=== PATIENT | female | born 1995 | race Caucasian/White ===

== ENCOUNTER 2016-03-15 18:24 | Emergency (ER) | payer SELFPAY ==
[~2016-03-15] VITALS: Ht 165.1 cm; Wt 122.5 kg
[~2016-03-15 18:24] MED LIST: ALBUTEROL0.09 MG/A2 INH; BACTRIM DS 8001 TA1 PO; BIRTH CONTROL; BIRTH CONTROL1 EAC1 PO; CIPROFLOXACIN500 MG PO; HYDROCODONE BIT1 T11 PO; MOTRIN800 MG PO; NORFLEX100 MG PO; PERCOCET 325 MG1 TA2 PO; PREDNICOT20 MG PO; PROVENTIL0.09 MG/A1 INH; PYRIDIUM200 MG PO; ROBITUSSIN AC 110 ML PO; ZITHROMAX Z PA250 MG PO; ZITHROMAX250 MG PO
[2016-03-15 18:28] VITALS: BP 144/89
[2016-03-15 18:55] LABS: BILIRUBIN 1+ (NEGATIVE); BLOOD NEGATIVE (NEGATIVE); CLARITY SL CLOUDY (CLEAR); COLOR YELLOW (YELLOW); GLUCOSE NEGATIVE (NEGATIVE); KETONE 1+ (NEGATIVE); LEUKO ESTERASE TRACE (NEGATIVE); NITRITE NEGATIVE (NEGATIVE); PROTEIN TRACE (NEGATIVE)
[2016-03-15 19:03] LABS: MUCOUS 1+; URINE REFLEX COMMENT YES (NO)
[2016-03-15 20:02] LABS: BASO % 0.4 % (0.0-1.0); EOS # 0.4 10*3/uL (0.0-0.4); EOS % 4.4 % (1.0-4.0); HEMATOCRIT 46.8 % (37.0-47.0); HEMOGLOBIN 15.8 g/dl (12.0-16.0); LYMPH # 3.7 10*3/uL (1.3-4.4); LYMPH % 38.6 % (27.0-41.0); MEAN CELL VOLUME 93.4 fl (81.0-99.0); MEAN CORPUSCULAR HGB 31.5 pg (27.0-31.0); MEAN CORPUSCULAR HGB CONC 33.8 g/dl (33.0-37.0); MEAN PLATELET VOLUME 10.7 fl (9.6-12.3); MONO # 0.8 10*3/uL (0.1-1.0); MONO % 8.8 % (3.0-9.0); NEUT # 4.5 10*3/uL (2.3-7.9); NEUT % 47.6 % (47.0-73.0); PLATELET COUNT AUTOMATED 245 10*3/uL (130-400); RED BLOOD COUNT 5.01 10*6/uL (4.10-5.10); RED CELL DISTRI WIDTH 12.4 % (0-14.5); WHITE BLOOD COUNT 9.5 10*3/uL (4.8-10.8)
[2016-03-15 21:01] LABS: ALBUMIN 3.4 gm/dl (3.1-4.5); ALKALINE PHOSPHATASE 72 U/L (45-117); BILIRUBIN, TOTAL 0.3 mg/dl (0.2-1.0); BUN 12 mg/dl (7-24); CARBON DIOXIDE 27 mmol/L (21-32); CHLORIDE 109 mmol/L (98-107); EST GLOM FILT AFRICAN AMERICAN > 60 ml/min; GLUCOSE 77 mg/dL (65-99); SGOT/AST 12 IU/L (3-35); SGPT/ALT 23 U/L (12-78); SODIUM 144 mmol/L (136-145); TOTAL PROTEIN 6.4 gm/dL (6.4-8.2)
[2016-03-15] MEDS ORDERED: CARAFATE1 G1 PO (23:02)
[2016-03-15] MEDS ORDERED: BACTRIM DS 8001 TA1 PO (23:02)
== END 2016-03-15 23:13 | disposition home or self-care (01) ==
LOC: ED 18:24
PROVIDERS: Physician Assistant
DX: R10.13 Epigastric pain (principal); F17.200 Nicotine dependence, unspecified, uncomplicated; K21.9 Gastro-esophageal reflux disease without esophagitis

== ENCOUNTER 2016-06-22 12:15 | Emergency (ER) | payer OTHER ==
[~2016-06-22] VITALS: Ht 167.6 cm; Wt 122.5 kg
[~2016-06-22 12:15] MED LIST changes: +CARAFATE1 G1 PO
[2016-06-22 12:35] VITALS: BP 131/76
[2016-06-22] MEDS ORDERED: VENTOLIN H0.09 MG/AC INH (14:52)
[2016-06-22] MEDS ORDERED: AVPAK AZITHROM250 M1 PO (14:52)
== END 2016-06-22 15:12 | disposition home or self-care (01) ==
LOC: ED 12:15
DX: J20.9 Acute bronchitis, unspecified (principal); F17.200 Nicotine dependence, unspecified, uncomplicated

== ENCOUNTER 2017-02-19 13:31 | Emergency (ER) | payer OTHER ==
[~2017-02-19] VITALS: Ht 165.1 cm; Wt 122.5 kg
[~2017-02-19 13:31] MED LIST changes: +AVPAK AZITHROM250 M1 PO; +VENTOLIN H0.09 MG/AC INH
[2017-02-19 14:21] LABS: BASO % 0.5 % (0.0-1.0); EOS # 0.6 10*3/uL (0.0-0.4); EOS % 7.4 % (1.0-4.0); HEMATOCRIT 45.3 % (37.0-47.0); LYMPH # 3.4 10*3/uL (1.3-4.4); LYMPH % 41.3 % (27.0-41.0); MEAN CELL VOLUME 89.7 fl (81.0-99.0); MEAN CORPUSCULAR HGB 31.7 pg (27.0-31.0); MEAN CORPUSCULAR HGB CONC 35.3 g/dl (33.0-37.0); MONO # 0.7 10*3/uL (0.1-1.0); MONO % 8.7 % (3.0-9.0); NEUT # 3.4 10*3/uL (2.3-7.9); NEUT % 41.9 % (47.0-73.0); PLATELET COUNT AUTOMATED 200 10*3/uL (130-400); RED BLOOD COUNT 5.05 10*6/uL (4.10-5.10); RED CELL DISTRI WIDTH 12.3 % (0-14.5); WHITE BLOOD COUNT 8.2 10*3/uL (4.8-10.8)
[2017-02-19 14:29] LABS: BILIRUBIN NEGATIVE (NEGATIVE); BLOOD NEGATIVE (NEGATIVE); CLARITY SL CLOUDY (CLEAR); COLOR YELLOW (YELLOW); GLUCOSE NEGATIVE (NEGATIVE); KETONE NEGATIVE (NEGATIVE); LEUKO ESTERASE NEGATIVE (NEGATIVE); NITRITE NEGATIVE (NEGATIVE); UROBILINOGEN 0.2 E.U./dl (0.2-1.0)
[2017-02-19 14:34] LABS: ALBUMIN 3.9 gm/dl (3.1-4.5); BUN 11 mg/dl (7-24); CHLORIDE 106 mmol/L (98-107); POTASSIUM 4.3 mmol/L (3.5-5.1); SGOT/AST 17 IU/L (3-35); SGPT/ALT 27 U/L (12-78); SODIUM 140 mmol/L (136-145); TOTAL PROTEIN 7.5 gm/dL (6.4-8.2)
[2017-02-19 14:35] LABS: ALKALINE PHOSPHATASE 102 U/L (45-117)
[2017-02-19 14:48] LABS: BACTERIA TRACE; EPITHELIAL CELLS 55-60; MUCOUS TRACE; RBC 0-2 rbc/hpf (0-2)
[2017-02-19] MEDS ORDERED: PROTONIX40 MG PO (15:19)
[2017-02-19] MEDS ORDERED: ZANTAC 150150 MG PO (15:19)
[2017-02-19] MEDS ORDERED: CARAFATE1 G1 PO (15:19)
== END 2017-02-19 15:47 | disposition home or self-care (01) ==
LOC: ED 13:31
PROVIDERS: Emergency Medicine
DX: K21.9 Gastro-esophageal reflux disease without esophagitis (principal); F17.200 Nicotine dependence, unspecified, uncomplicated; Z79.899 Other long term (current) drug therapy

== ENCOUNTER 2017-06-02 05:43 | Emergency (ER) | payer OTHER ==
[~2017-06-02] VITALS: Ht 165.1 cm; Wt 122.5 kg
[~2017-06-02 05:43] MED LIST changes: +PROTONIX40 MG PO; +ZANTAC 150150 MG PO
[2017-06-02 06:08] LABS: BILIRUBIN 1+ (NEGATIVE); BLOOD NEGATIVE (NEGATIVE); CLARITY SL CLOUDY (CLEAR); COLOR YELLOW (YELLOW); GLUCOSE NEGATIVE (NEGATIVE); KETONE TRACE (NEGATIVE); LEUKO ESTERASE NEGATIVE (NEGATIVE); NITRITE NEGATIVE (NEGATIVE); PH 5.5 (5.0-9.0); SPECIFIC GRAVITY >= 1.030 (1.005-1.030)
[2017-06-02 06:20] LABS: BACTERIA 3+; EPITHELIAL CELLS 35-40
[2017-06-02 06:26] LABS: BASO % 0.2 % (0.0-1.0); EOS # 0.7 10*3/uL (0.0-0.4); EOS % 7.6 % (1.0-4.0); HEMATOCRIT 44.8 % (37.0-47.0); HEMOGLOBIN 15.7 g/dl (12.0-16.0); LYMPH # 2.7 10*3/uL (1.3-4.4); LYMPH % 30.7 % (27.0-41.0); MEAN CELL VOLUME 90.9 fl (81.0-99.0); MEAN CORPUSCULAR HGB 31.8 pg (27.0-31.0); MEAN PLATELET VOLUME 10.1 fl (9.6-12.3); MONO # 0.6 10*3/uL (0.1-1.0); MONO % 7.3 % (3.0-9.0); NEUT # 4.7 10*3/uL (2.3-7.9); NEUT % 54.1 % (47.0-73.0); PLATELET COUNT AUTOMATED 185 10*3/uL (130-400); RED BLOOD COUNT 4.93 10*6/uL (4.10-5.10); RED CELL DISTRI WIDTH 12.5 % (0-14.5); WHITE BLOOD COUNT 8.7 10*3/uL (4.8-10.8)
[2017-06-02 06:41] LABS: ALBUMIN 3.8 gm/dl (3.1-4.5); ALKALINE PHOSPHATASE 99 U/L (45-117); BUN 13 mg/dl (7-24); CHLORIDE 107 mmol/L (98-107); CREATININE 0.83 mg/dL (0.55-1.02); LIPASE 109 U/L (73-393); POTASSIUM 3.6 mmol/L (3.5-5.1); SGOT/AST 21 IU/L (3-35); SGPT/ALT 33 U/L (12-78); SODIUM 141 mmol/L (136-145)
[2017-06-02] MEDS ORDERED: PRILOSEC20 M1 PO (10:28)
[2017-06-02 11:00] VITALS: BP 122/64
[2017-06-02] MEDS ORDERED: SPRINTEC 35 MCG1 TA1 PO (19:53)
[2017-06-03] MEDS ORDERED: PROTONIX40 MG PO (11:05)
[2017-06-03] MEDS ORDERED: CARAFATE1 G1 PO (11:05)
[2017-06-03] MEDS ORDERED: Zofran4 MG SL (11:05)
== END 2017-06-02 10:59 | disposition home or self-care (01) ==
LOC: ED 05:43
PROVIDERS: Emergency Medicine Emergency Medical Services
DX: R10.13 Epigastric pain (principal); K21.9 Gastro-esophageal reflux disease without esophagitis; Z79.899 Other long term (current) drug therapy

== ENCOUNTER 2017-06-02 18:15 | Inpatient (IN) | payer OTHER ==
[~2017-06-02] VITALS: Ht 165.1 cm; Wt 132.1 kg
--- NOTE | ~2017-06-02 | O ---
[place], [place] OPERATIVE NOTE NAME: KELLIE CHUA UNIT #: [id number] ROOM: 427 DOCTOR: MAME VENTURA MD BIRTHDATE: [birth year] DOS: 06/03/2017 GASTROENDOSCOPIC REPORT INDICATIONS: A 21-year-old patient, morbidly obese with fatty metamorphosis of liver with relentless nausea and vomiting. test negative. Sonographic study of the gallbladder negative. No stone. CT scan of the abdomen and pelvis negative. The patient consumes 3 to 4 cans of carbonated sodas per day and a nicotine consumer. PROCEDURE: Today's procedure part of investigation is panendoscopy plus biopsy. PREMEDICATION: Versed and Diprivan. SCOPE: Olympus forward-viewing gastroscope Q10 video. REPORT: After putting the patient in left lateral position and application of lubricant to the scope, the scope was introduced. Thereafter, under direct visualization, advanced through the length of esophagus without difficulty. Gastric pouch was entered. Proximal hemorrhagic gastritis was noticed. Biopsies obtained. Photograph was obtained. Bile reflux was noticed. Duodenal bulb, second and third part within normal limits. The patient was extubated, tolerated the procedure well. IMPRESSION: Proximal hemorrhagic gastritis, status post biopsy, bile reflux gastritis. PLAN AND DISCUSSION: We are going to address the gastritis with Protonix 40 mg IV daily and sucralfate 2 grams slurry q.i.d. We are going to give her a dose of GI cocktail today and she would benefit from a HIDA scan even as outpatient to assure that there is no instigating etiology to have nausea and vomiting, i.e., gallbladder dysfunction, and clinical reassessment. At the present time, hemorrhagic gastritis is the etiology of the nausea and vomiting. [place], [place] OPERATIVE NOTE NAME: KELLIE CHUA [place] UNIT #: [id number] ROOM: 427 DOCTOR: MAME VENTURA MD BIRTHDATE: [birth year] MAME VENTURA MD CM:OPRECORD:OPERATIVE NOTE 6 MAME VENTURA MD 06/03/17 0835 interface
--- NOTE | ~2017-06-02 | CON ---
[place], [place] REPORT OF CONSULTATION [facility]: [facility]IE [id number] UNIT #: [id number] ROOM: 427 DOCTOR: MAME VENTURA MD BIRTHDATE: [birth year] DOS: 06/03/2017 HISTORY OF PRESENT ILLNESS: A 21-year-old patient who has presented with relentless nausea and vomiting. She is not . She is drinking 3 carbonated sodas, caffeinated beverages. She is a smoker. At the time of admission, white blood cell was 8, H and H of 15 and 44, INR 1.0. Abdominal x-rays, no acute abdominal pathology identified. Comprehensive metabolic panel, electrolyte, GFR all normal. Lipase is normal. Lactic acid is 0.9. CT scan of the abdomen and pelvis, no definitive intraabdominal pathology was seen. Ultrasound of the gallbladder, diffuse hepatic steatosis, otherwise unremarkable ultrasound. No cholelithiasis. Gallbladder wall thickening or biliary distention is not noticed. White blood cell increased to 11. Comprehensive metabolic panel remained normal. Liver function tests remained normal. PAST MEDICAL HISTORY: Reflux, morbid obesity, nicotine dependency. SOCIAL HISTORY: Smoker, nonalcohol consumer. FAMILY HISTORY: Noncontributory. ALLERGIES: No known medications. MEDICATIONS: Anti- pills. REVIEW OF SYSTEMS: HEENT: Denies double vision or blurred vision. RESPIRATORY: Denies acute shortness of breath or history of asthma. CARDIOVASCULAR: Denies chest pain. DIGESTIVE SYSTEM: Recurrent nausea and vomiting. PHYSICAL EXAMINATION: GENERAL: Morbidly obese patient. VITAL SIGNS: Stable. HEENT: Head is normocephalic, nontraumatic. Mouth and buccal mucosa benign. NECK: Supple. No thyromegaly. No cervical lymphadenopathy. CHEST: Symmetric anatomy, equal expansion. No wheeze, no rhonchi. HEART: Normal sinus rhythm. No gallop, no murmur. ABDOMEN: Obese, large, soft. Intra-abdominal organs cannot be palpated due to obesity. EXTREMITIES: No cyanosis. No pedal edema. NEUROLOGIC: Alert and oriented to time, place, and person. IMPRESSION: Relentless nausea and vomiting, morbid obesity, nicotine dependency. LABORATORY AND IMAGING DATA: Labs reviewed, records reviewed. All the studies are nearly normal. PLAN AND DISCUSSION: We are going to do endoscopy and further decision regarding HIDA scan or otherwise. Fatty metamorphosis of the liver is noticed [place], [place] REPORT OF CONSULTATION NAME: KELLIE CHUA UNIT #: [id number] ROOM: 427 DOCTOR: AUDREY BAY,MAME BIRTHDATE: [birth year] that corresponds with her morbid obesity. MAME VENTURA MD CM:CONSTR:REPORT OF CONSULTATION 1 06/03/17 0917 interface
[~2017-06-02 18:15] MED LIST changes: +PRILOSEC20 M1 PO
[2017-06-02 18:19] VITALS: BP 150/84
[2017-06-02 19:35] VITALS: BP 150/84; BP 99/58
[2017-06-02] MEDS ORDERED: SPRINTEC 35 MCG1 TA1 PO (19:53)
[2017-06-02 20:23] LABS: BASO % 0.4 % (0.0-1.0); EOS # 0.6 10*3/uL (0.0-0.4); EOS % 5.6 % (1.0-4.0); HEMATOCRIT 42.8 % (37.0-47.0); HEMOGLOBIN 14.7 g/dl (12.0-16.0); LYMPH # 2.9 10*3/uL (1.3-4.4); LYMPH % 25.6 % (27.0-41.0); MEAN CELL VOLUME 91.8 fl (81.0-99.0); MEAN CORPUSCULAR HGB 31.5 pg (27.0-31.0); MEAN CORPUSCULAR HGB CONC 34.3 g/dl (33.0-37.0); MONO # 0.8 10*3/uL (0.1-1.0); MONO % 7.5 % (3.0-9.0); NEUT # 6.8 10*3/uL (2.3-7.9); NEUT % 60.7 % (47.0-73.0); PLATELET COUNT AUTOMATED 184 10*3/uL (130-400); RED BLOOD COUNT 4.66 10*6/uL (4.10-5.10); RED CELL DISTRI WIDTH 12.6 % (0-14.5); WHITE BLOOD COUNT 11.2 10*3/uL (4.8-10.8)
[2017-06-02 20:38] LABS: ALBUMIN 3.8 gm/dl (3.1-4.5); ALKALINE PHOSPHATASE 97 U/L (45-117); BUN 10 mg/dl (7-24); CHLORIDE 104 mmol/L (98-107); CREATININE 0.86 mg/dL (0.55-1.02); PHOSPHOROUS 2.6 mg/dL (2.5-4.9); POTASSIUM 3.8 mmol/L (3.5-5.1); SGOT/AST 16 IU/L (3-35); SGPT/ALT 29 U/L (12-78); SODIUM 139 mmol/L (136-145); TOTAL PROTEIN 6.8 gm/dL (6.4-8.2)
[2017-06-03 00:52] VITALS: BP 96/50
[2017-06-03 06:25] LABS: BASO % 0.3 % (0.0-1.0); EOS # 0.8 10*3/uL (0.0-0.4); EOS % 8.2 % (1.0-4.0); HEMATOCRIT 43.2 % (37.0-47.0); HEMOGLOBIN 14.6 g/dl (12.0-16.0); LYMPH # 3.6 10*3/uL (1.3-4.4); LYMPH % 38.2 % (27.0-41.0); MEAN CELL VOLUME 92.9 fl (81.0-99.0); MEAN CORPUSCULAR HGB 31.4 pg (27.0-31.0); MEAN CORPUSCULAR HGB CONC 33.8 g/dl (33.0-37.0); MEAN PLATELET VOLUME 10.3 fl (9.6-12.3); MONO # 0.8 10*3/uL (0.1-1.0); MONO % 8.7 % (3.0-9.0); NEUT # 4.1 10*3/uL (2.3-7.9); NEUT % 44.3 % (47.0-73.0); PLATELET COUNT AUTOMATED 180 10*3/uL (130-400); RED BLOOD COUNT 4.65 10*6/uL (4.10-5.10); RED CELL DISTRI WIDTH 12.6 % (0-14.5); WHITE BLOOD COUNT 9.4 10*3/uL (4.8-10.8)
[2017-06-03 06:46] LABS: ALBUMIN 3.7 gm/dl (3.1-4.5); ALKALINE PHOSPHATASE 97 U/L (45-117); BUN 9 mg/dl (7-24); CHLORIDE 106 mmol/L (98-107); CHOLESTEROL 138 mg/dL (<200); CREATININE 0.87 mg/dL (0.55-1.02); HDL CHOLESTEROL 39 mg/dl (40-60); LDL CHOLESTEROL 84 mg/dL (9-159); PHOSPHOROUS 2.9 mg/dL (2.5-4.9); POTASSIUM 3.8 mmol/L (3.5-5.1); SGOT/AST 20 IU/L (3-35); SGPT/ALT 28 U/L (12-78); SODIUM 141 mmol/L (136-145); TOTAL PROTEIN 6.7 gm/dL (6.4-8.2); TRIGLYCERIDES 76 mg/dl (<150); VLDL CHOLESTEROL 15 mg/dL (6-40)
[2017-06-03 07:00] VITALS: BP 116/71
[2017-06-03 08:00] VITALS: BP 93/55
[2017-06-03 08:32] VITALS: BP 94/47
[2017-06-03 08:39] VITALS: BP 99/54
[2017-06-03 08:50] VITALS: BP 107/61
[2017-06-03] MEDS ORDERED: Zofran4 MG SL (11:05)
[2017-06-03] MEDS ORDERED: CARAFATE1 G1 PO (11:05)
[2017-06-03] MEDS ORDERED: PROTONIX40 MG PO (11:05)
== END 2017-06-03 14:03 | disposition home or self-care (01) | DRG 378 ==
LOC: ED 18:15 → EDHOLD 18:41 → 4E 18:41 → EDHOLD 18:46 → 4E 06-03 14:03
PROVIDERS: Internal Medicine; Internal Medicine Nephrology
PROC: 0DB68ZX Excision of Stomach, Via Natural or Artificial Opening Endoscopic, Diagnostic (ICD-10-PCS; principal; 2017-06-03)
DX: K29.71 Gastritis, unspecified, with bleeding (principal); Z68.42 Body mass index [BMI] 45.0-49.9, adult; D72.1 Eosinophilia; K76.0 Fatty (change of) liver, not elsewhere classified; E66.01 Morbid (severe) obesity due to excess calories; F17.210 Nicotine dependence, cigarettes, uncomplicated; R79.82 Elevated C-reactive protein (CRP); K21.9 Gastro-esophageal reflux disease without esophagitis; Z79.2 Long term (current) use of antibiotics; Z79.899 Other long term (current) drug therapy; Z87.440 Personal history of urinary (tract) infections; Z83.6 Family history of other diseases of the respiratory system; Z83.3 Family history of diabetes mellitus; Z82.5 Family history of asthma and other chronic lower respiratory diseases; Z78.9 Other specified health status; Z71.6 Tobacco abuse counseling

== ENCOUNTER → 2017-06-16 | Outpatient (CLI) | payer OTHER ==
[~2017-06-16] MED LIST changes: +SPRINTEC 35 MCG1 TA1 PO; +Zofran4 MG SL
== END | disposition home or self-care (01) ==
LOC: NM 06:53
DX: R11.2 Nausea with vomiting, unspecified (principal); R10.10 Upper abdominal pain, unspecified

== ENCOUNTER 2017-11-20 12:11 | Emergency (ER) | payer OTHER ==
[~2017-11-20] VITALS: Ht 167.6 cm; Wt 131.5 kg
[2017-11-20 12:15] VITALS: BP 119/62
[2017-11-20 12:35] LABS: BASO % 0.3 % (0.0-1.0); EOS # 0.3 10*3/uL (0.0-0.4); EOS % 3.6 % (1.0-4.0); HEMATOCRIT 43.4 % (37.0-47.0); HEMOGLOBIN 14.9 g/dl (12.0-16.0); LYMPH # 3.2 10*3/uL (1.3-4.4); LYMPH % 36.1 % (27.0-41.0); MEAN CELL VOLUME 92.1 fl (81.0-99.0); MEAN CORPUSCULAR HGB 31.6 pg (27.0-31.0); MEAN CORPUSCULAR HGB CONC 34.3 g/dl (33.0-37.0); MONO # 0.6 10*3/uL (0.1-1.0); MONO % 6.5 % (3.0-9.0); NEUT # 4.8 10*3/uL (2.3-7.9); NEUT % 53.3 % (47.0-73.0); PLATELET COUNT AUTOMATED 191 10*3/uL (130-400); RED BLOOD COUNT 4.71 10*6/uL (4.10-5.10); RED CELL DISTRI WIDTH 12.9 % (0-14.5); WHITE BLOOD COUNT 8.9 10*3/uL (4.8-10.8)
[2017-11-20 12:51] LABS: ALBUMIN 3.6 gm/dl (3.1-4.5); ALKALINE PHOSPHATASE 95 U/L (45-117); BUN 13 mg/dl (7-24); CHLORIDE 111 mmol/L (98-107); CREATININE 0.76 mg/dL (0.55-1.02); LIPASE 93 U/L (73-393); POTASSIUM 3.8 mmol/L (3.5-5.1); SGOT/AST 10 IU/L (3-35); SGPT/ALT 25 U/L (12-78); SODIUM 144 mmol/L (136-145); TOTAL PROTEIN 6.8 gm/dL (6.4-8.2)
[2017-11-20 12:53] LABS: B-hCG (QUALITATIVE) NEGATIVE (NEGATIVE)
[2017-11-20 13:01] LABS: BILIRUBIN NEGATIVE (NEGATIVE); BLOOD NEGATIVE (NEGATIVE); CLARITY CLEAR (CLEAR); COLOR YELLOW (YELLOW); GLUCOSE NEGATIVE (NEGATIVE); KETONE NEGATIVE (NEGATIVE); LEUKO ESTERASE 1+ (NEGATIVE); NITRITE NEGATIVE (NEGATIVE); SPECIFIC GRAVITY 1.015 (1.005-1.030); UROBILINOGEN 0.2 E.U./dl (0.2-1.0)
[2017-11-20 13:14] LABS: BACTERIA 2+; MUCOUS 2+; RBC 0-2 rbc/hpf (0-2)
== END 2017-11-20 13:44 | disposition home or self-care (01) ==
LOC: ED 12:11
PROVIDERS: Emergency Medicine
DX: K52.81 Eosinophilic gastritis or gastroenteritis (principal); K21.9 Gastro-esophageal reflux disease without esophagitis; E66.9 Obesity, unspecified; F17.200 Nicotine dependence, unspecified, uncomplicated

== ENCOUNTER 2018-02-17 16:07 | Emergency (ER) | payer OTHER ==
[~2018-02-17] VITALS: Ht 165.1 cm; Wt 131.5 kg
[2018-02-17 16:13] VITALS: BP 109/79
[2018-02-17] MEDS ORDERED: ALA-CORT28.4 GM T (16:28)
[2018-02-17] MEDS ORDERED: CHANTRIX0.5 MG PO (16:28)
== END 2018-02-17 16:53 | disposition home or self-care (01) ==
LOC: ED 16:07
DX: S10.96XA Insect bite of unspecified part of neck, initial encounter (principal); J45.909 Unspecified asthma, uncomplicated; E66.01 Morbid (severe) obesity due to excess calories; F17.210 Nicotine dependence, cigarettes, uncomplicated; Z79.899 Other long term (current) drug therapy; W57.XXXA Bitten or stung by nonvenomous insect and other nonvenomous arthropods, initial encounter; Y93.89 Activity, other specified; Y92.89 Other specified places as the place of occurrence of the external cause; Y99.8 Other external cause status

== ENCOUNTER → 2018-03-24 | Day surgery (SDC) | payer SELFPAY ==
[~2018-03-24] MED LIST changes: +ALA-CORT28.4 GM T; +CHANTRIX0.5 MG PO
== END | disposition home or self-care (01) ==
LOC: SDC 03-20 08:45
DX: K21.9 Gastro-esophageal reflux disease without esophagitis (principal); Z53.8 Procedure and treatment not carried out for other reasons

== ENCOUNTER 2019-01-14 20:34 | Emergency (ER) | payer OTHER ==
[~2019-01-14] VITALS: Ht 165.1 cm; Wt 131.5 kg
[2019-01-14 20:35] VITALS: BP 129/73
[2019-01-14 20:54] LABS: BASO # 0.1 10*3/uL (0.0-0.1); BASO % 0.5 % (0.0-1.0); EOS # 0.4 10*3/uL (0.0-0.4); EOS % 4.3 % (1.0-4.0); HEMOGLOBIN 14.5 g/dl (12.0-16.0); LYMPH # 3.7 10*3/uL (1.3-4.4); LYMPH % 35.9 % (27.0-41.0); MEAN CELL VOLUME 92.9 fl (81.0-99.0); MEAN CORPUSCULAR HGB 31.3 pg (27.0-31.0); MEAN CORPUSCULAR HGB CONC 33.7 g/dl (33.0-37.0); MONO # 0.6 10*3/uL (0.1-1.0); MONO % 5.7 % (3.0-9.0); NEUT # 5.5 10*3/uL (2.3-7.9); NEUT % 53.3 % (47.0-73.0); PLATELET COUNT AUTOMATED 205 10*3/uL (130-400); RED BLOOD COUNT 4.63 10*6/uL (4.10-5.10); RED CELL DISTRI WIDTH 13.1 % (0-14.5); WHITE BLOOD COUNT 10.3 10*3/uL (4.8-10.8)
[2019-01-14 21:09] LABS: ALBUMIN 3.6 gm/dl (3.1-4.5); ALKALINE PHOSPHATASE 90 U/L (45-117); BUN 14 mg/dl (7-24); CHLORIDE 112 mmol/L (98-107); LIPASE 107 U/L (73-393); POTASSIUM 3.6 mmol/L (3.5-5.1); SGOT/AST 17 IU/L (3-35); SGPT/ALT 31 U/L (12-78); SODIUM 143 mmol/L (136-145); TOTAL PROTEIN 7.1 gm/dL (6.4-8.2)
[2019-01-14 21:12] LABS: BILIRUBIN NEGATIVE (NEGATIVE); BLOOD NEGATIVE (NEGATIVE); CLARITY CLEAR (CLEAR); COLOR YELLOW (YELLOW); GLUCOSE NEGATIVE (NEGATIVE); KETONE NEGATIVE (NEGATIVE); LEUKO ESTERASE NEGATIVE (NEGATIVE); NITRITE NEGATIVE (NEGATIVE); SPECIFIC GRAVITY 1.025 (1.005-1.030); UROBILINOGEN 0.2 E.U./dl (0.2-1.0)
[2019-01-14 21:20] LABS: BACTERIA 2+; EPITHELIAL CELLS 0-2; MUCOUS TRACE
== END 2019-01-14 21:55 | disposition home or self-care (01) ==
LOC: ED 20:34
PROVIDERS: Physician Assistant
DX: R10.13 Epigastric pain (principal); F17.200 Nicotine dependence, unspecified, uncomplicated; Z87.440 Personal history of urinary (tract) infections

== ENCOUNTER 2019-03-15 17:55 | Emergency (ER) | payer OTHER ==
[~2019-03-15] VITALS: Ht 165.1 cm; Wt 136.1 kg
== END 2019-03-15 19:59 | disposition left against medical advice (07) ==
LOC: ED 17:55
DX: R11.2 Nausea with vomiting, unspecified (principal); Z53.21 Procedure and treatment not carried out due to patient leaving prior to being seen by health care provider